=== PATIENT | female | born 1950 | race Caucasian/White ===

== ENCOUNTER → 2025-03-07 12:51 | Outpatient (BNVA) | payer MEDICARE, SELFPAY | PROVIDERS: PCP Nurse Practitioner Family; Referring Provider Nurse Practitioner Family; Visit Provider Student in an Organized Health Care Education/Training Program | DX: M12.812 Other specific arthropathies, not elsewhere classified, left shoulder (principal) | CPT/HCPCS: 99214 ==

== ENCOUNTER 2025-03-07 15:49 | Outpatient (CLI) | payer MEDICARE, SELFPAY ==
[2025-03-07 14:41] LABS: HCT 35.5 % (36.0-46.0); HGB 10.6 g/dL (11.2-15.7); MCH 27.0 pg (27.0-33.0); MCHC 29.9 % (32.0-36.0); MCV 90 fL (80-95); MPV 8.8 fL (8.0-11.0); Platelet Count 348 10^3/uL (130-400); RBC 3.93 10^6/uL (3.93-5.22); RDW 14.7 % (11.7-14.6); RDW-SD 48.9 fL; WBC 10.19 10^3/uL (4.4-10.8)
[2025-03-07 14:44] LABS: ESR 10 mm/hr (0-30)
[2025-03-07 15:43] LABS: C-Reactive Protein < 0.50 mg/dL (<or=0.5)
== END 2025-03-07 15:50 | disposition home or self-care (01) ==
LOC: LBO 15:50
PROVIDERS: PCP Nurse Practitioner Family; Visit Provider Student in an Organized Health Care Education/Training Program
DX: M25.512 Pain in left shoulder (principal)
CPT/HCPCS: 36415; 85027; 85652; 99214; 86140

== ENCOUNTER 2025-04-24 14:49 | Outpatient (CLI) | payer MEDICARE, SELFPAY ==
--- NOTE | 2025-04-24 13:45 | DI.RAD_ITS ---
Exam(s) XR SHOULDER LT COMPLETE 2+V EXAM: XR SHOULDER LT COMPLETE 2+V CLINICAL HISTORY: LEFT SHOULDER PAIN. TECHNIQUE: 2D digital imaging was performed. Four views. COMPARISON: No exams were available for comparison FINDINGS: BONES: No acute fracture is present. No bony destructive lesion is seen. JOINTS: There is severe narrowing of the glenohumeral joint. There is mild periarticular spurring. The humeral head is superiorly subluxed, articulating with the undersurface of the acromion, consistent with chronic rotator cuff tear. There are degenerative subchondral cysts in the humeral head and adjacent acromion. SOFT TISSUE: Normal. IMPRESSION: Severe degenerative changes of the glenohumeral joint. Chronic rotator cuff tear DATA REPOSITORY: RADIATION DOSE DELIVERED:
== END 2025-04-24 14:50 | disposition home or self-care (01) ==
LOC: DIORS 14:49
PROVIDERS: PCP Family Medicine; Referring Provider Nurse Practitioner Family; Visit Provider Student in an Organized Health Care Education/Training Program
DX: M12.812 Other specific arthropathies, not elsewhere classified, left shoulder (principal); Z79.52 Long term (current) use of systemic steroids; E11.9 Type 2 diabetes mellitus without complications
CPT/HCPCS: 99214; 73030

== ENCOUNTER 2025-05-10 02:28 | Outpatient (CLI) | payer MEDICARE, SELFPAY ==
--- NOTE | 2025-05-10 06:30 | DI.CT_ITS ---
Exam(s) CT UPPER EXTREMITY LT WO EXAM: CT UPPER EXTREMITY LT WO CLINICAL HISTORY: SURGICAL PLANNING,primary oa lt shoulder,m19.012 TECHNIQUE: Imaging Protocol: Axial computed tomography images with coronal and sagittal reformatted images were created and reviewed. CONTRAST MATERIAL: Intravenous: Omnipaque 350 Contrast volume:structured data in ml Contrast route:IV - COMPARISON: CR XR SHOULDER LT COMPLETE 2+V from 04/24/2025 FINDINGS: Bones: There is no evidence of fracture. No cellulitic or osteomyelitic changes are identified. There are degenerative subchondral cysts in the humeral head and glenoid. The bones appear osteopenic. Joints: There is severe narrowing of the glenohumeral joint space and mild periarticular spurring. The humeral head articulates with the undersurface of the acromion. There are subchondral cysts in this location. A joint effusion is seen. The AC joint is unremarkable. Soft Tissues: None there is severe atrophy of the supraspinatus and subscapularis muscles. There is also some atrophy of the supraspinatus muscle. IMPRESSION: Severe degenerative changes of the glenohumeral joint. Evidence chronic rotator cuff tear. Muscular atrophy. RADIATION DOSE DELIVERED: 193.92mGy.cm Total DLP DATA REPOSITORY: All CT scans at this facility are submitted to the National Radiology Data Registry (NRDR) Dose Index Registry (DIR) with the [employer] ([employer]). RADIATION OPTIMIZATION: All CT scans at this facility use at least one of these dose optimization techniques: automated exposure control; mA and/or kV adjustment per patient size (includes targeted exams where dose is matched to clinical indication); or iterative reconstruction.
== END 2025-05-10 02:48 ==
LOC: DI 05-11 03:27
PROVIDERS: PCP Family Medicine; Visit Provider Student in an Organized Health Care Education/Training Program
DX: M19.012 Primary osteoarthritis, left shoulder (principal)
CPT/HCPCS: 73200

== ENCOUNTER → 2025-05-15 10:54 | Outpatient (BNVA) | payer MEDICARE, SELFPAY | PROVIDERS: PCP Family Medicine; Referring Provider Family Medicine; Visit Provider Student in an Organized Health Care Education/Training Program | DX: M12.812 Other specific arthropathies, not elsewhere classified, left shoulder (principal) | CPT/HCPCS: 99213 ==